=== PATIENT | female | born 1940 | race Caucasian/White ===

== ENCOUNTER → 2016-11-09 | Outpatient (CLI) | payer MEDICARE, BC ==
[~2016-11-09] MED LIST: ADVAIR 45-21 INH; ADVAIR INH; ALDACTONE25 MG PO; ALPRAZOLAM PO; AMIODARONE PO; ASPIRIN81 M2 PO; ATACAND PO; ATACAND16 MG PO; CENTRUM PO; CERTAGEN PO; COZAAR PO; DESYREL150 M1 PO; DIGOX0.25 MG PO; FLONASE 0.05% N16 G1; GABAPENTIN300 MG PO; GLUCOPHAGE500 M1 PO; GLUCOPHAGE500 MG PO; HYDROCODON-ACE1 EAC7 PO; JANUMET; JANUVIA100 MG PO; LEVOXYL50 MC1 PO; LEVOXYL50 MCG PO; LOFIBRA54 MG PO; LORTAB 10-3251 EACH PO; LOSARTAN-HCTZ1 EAC2 PO; LOVAZA; LOVAZA1 G PO; MAG-OX 400400 M1 PO; MAGNESIUM400 MG PO; METOPROLOL TART25 MG PO; MOBIC PO; MULTI VITAMIN1 EACH PO; NABUMETONE PO; PERCOCET10 PO; PERICOLACE PO; PRADAXA150 MG PO; PRAVACHOL PO; SENOKOT S1 TA1 PO; SIMVASTATIN40 MG PO; SINGULAIR PO; SYMBICORT 160/4.6 G1 IH; SYNTHROID PO; TOPAMAX50 MG PO; TOPROL XL PO; TRAZODONE PO; TRICOR PO; VENLAFAXINE HCL75 M1 PO; VIT B-12 PO; VIT B6; VITAMIN B-12250 MCG PO; VITAMIN B122500 MC1 PO; VITAMIN B6200 MG PO; VITAMIN C PO; VITAMIN D 4001 UDTAB PO; VITAMIN D-32000 UNIT PO; VITAMIN D2000 UNIT PO; XANAX0.5 M1 PO; ZOLOFT PO
--- NOTE | ~2016-11-09 | ST ---
Unit #: [id number] #: [id number] Patient: KURT READ [id number] [facility]. [place] [id number] [facility]. [place], [place] [address] [id number] O MR#: [id number] NAME: KURT READ : 1940 SEX: F STUDY DATE/TIME: 11/09/2016 UNIT: [facility] ROOM: STUDY DESCRIPTION: Attending Physician: Nandini Carpenter M.D. Referring Physician: Nandini Carpenter M.D. Primary Care Physician: Federica Sebastian M.D. CARDIOLOGY REPORT EXAM Lexiscan Cardiolite stress test. FINDINGS Baseline EKG: Sinus bradycardia, heart rate 54 beats per minute, left atrial abnormality, Q wave noted in V1, slow R wave progression, T-wave inversion in inferior anterolateral leads. PROCEDURE Lexiscan is a 4-minute test with Lexiscan being injected within the first minute followed by Cardiolite. EKG during the test continued to show some ST inversion in inferior anterolateral lead with 0.[address] depression in lateral leads. The patient had no complaints of chest pain, palpitations, or dizziness. Had increased shortness of breath and fatigueness which resolved in recovery phase. Maximum heart rate response was 75 beats per minute. Maximum blood pressure response 151/72 mmHg. Cardiolite was injected after Lexiscan within the first minute of the test. Radionuclide tests pending. Please correlate with nuclear images. Dictated by... Ash OliveiraPRanjitRRanjitNRanjit for Katharine Schrader/abigail TD: 11/09/2016 11:16 JOB #: [id number] CARDIOLOGY REPORT Page 1 of 1 X Sri Berger APRN CARDIOLOGY REPORT
--- NOTE | ~2016-11-09 | TH ---
Unit #: [id number] #: [id number] Patient: KURT READ [id number] [address] [address] [id number] O MR#: [id number] NAME: KURT READ : 1940 SEX: F STUDY DATE/TIME: UNIT: [facility] ROOM: STUDY DESCRIPTION: Nuclear Study Attending Physician: Nandini Carpenter M.D. Referring Physician: Nandini Carpenter M.D. Primary Care Physician: Federica Sebastian M.D. CARDIOLOGY REPORT EXAM Lexiscan Cardiolite Stress Test - Nuclear Portion PROCEDURE Using technetium 99m labeled Cardiolite, rest and stress SPECT images were obtained. Multiple SPECT images were obtained in various views including horizontal and vertical long axis and short axis views of the left ventricle. Images were obtained by gated SPECT method. Patient was administered 9.03 mCi of Cardiolite at rest. Patient was administered 30.1 mCi of Cardiolite after Lexiscan infusion was completed. On the stress images, there is normal perfusion noted. The rest images showed normal perfusion. Comparing rest and stress images, there is no stress-induced ischemia noted. The left ventricular ejection fraction is calculated to be 70%. There is no focal wall motion abnormality seen. CONCLUSION 1. No stress-induced ischemia noted. 2. The left ventricular ejection fraction is calculated to be 70%. 3. There is no focal wall motion abnormality seen. 4. Normal Lexiscan Cardiolite stress test. Dictated by... Katharine Schrader TD: 11/09/2016 12:33 JOB #: [id number] Unit #: [id number] #: [id number] Patient: KURT READ CARDIOLOGY REPORT Page 1 of 1 X Nandini Carpenter MD <ELECTRONICALLY SIGNED> 12/09/16 1524 CARDIOLOGY REPORT
== END | disposition home or self-care (01) ==
LOC: CNUC 09:00
DX: R94.31 Abnormal electrocardiogram [ECG] [EKG] (principal); R07.9 Chest pain, unspecified
CPT/HCPCS: 78452; 93017; A9500; J2785